=== PATIENT | male | born 2000 | race Caucasian/White ===

== ENCOUNTER 2021-12-08 13:33 | Observation (INO) | payer BC ==
--- NOTE | 2021-12-08 14:04 | ERPHSYRPT ---
- History of Present Illness Source: patient Patient Subjective Stated Complaint: pt here for foreign object in recutm for 3 hours now, Triage Nursing Assessment: pt alert, resp easy, skin w/d/p. face mask in place, abd soft, no rectal bleeding Physician History: 21 yo wm w FB in rectum x 3 hours. Pt denies any other complaints at this time. Timing/Duration: hour(s) (3 hours) Severity: mild Associated Symptoms: No nausea, No vomiting, No abdominal pain, No shortness of breath, No heartburn, No diaphoresis, No cough, No chills, No chest pain, No fever, No headaches, No loss of appetite, No malaise, No rash, No syncope, No seizure, No weakness Allergies/Adverse Reactions: No Known Drug Allergies Allergy (Unverified 12/08/21 13:46) Home Medications: No Reportable Medications [No Reported Medications] 12/08/21 [History] Hx Influenza Vaccination/Date Given: Yes Hx Pneumococcal Vaccination/Date Given: No Immunizations Up to Date: Yes Travel Risk - International Travel Have you traveled outside of the country in past 3 weeks: No - Coronavirus Screening Are you exhibiting any of the following symptoms?: No Close contact with a COVID-19 positive Pt in past 14-21 Days: No - Vaccine Status Have you recieved a Covid-19 vaccination: No - Review of Systems Constitutional: No Symptoms Eyes: No Symptoms Ears, Nose, & Throat: No Symptoms Respiratory: No Symptoms Cardiac: No Symptoms Abdominal/Gastrointestinal: No Symptoms Genitourinary Symptoms: No Symptoms Musculoskeletal: No Symptoms Skin: No Symptoms Neurological: No Symptoms Psychological: No Symptoms Endocrine: No Symptoms Hematologic/Lymphatic: No Symptoms Immunological/Allergic: No Symptoms - Past Medical History Pertinent Past Medical History: No - Past Surgical History Past Surgical History: No - Social History Smoking Status: Never smoker Exposure to second hand smoke: No Drug Use: none Patient Lives Alone: No Significant Family History: no pertinent family hx - Nursing Vital Signs Nursing Vital Signs: Initial Vital Signs Temperature 96.8 F 12/08/21 13:42 Pulse Rate 121 H 12/08/21 13:42 Respiratory Rate 18 12/08/21 13:42 Blood Pressure 128/79 12/08/21 13:42 O2 Sat by Pulse Oximetry 96 12/08/21 13:42 Pain Scale Pain Intensity 0 Tachy - Physical Exam General Appearance: no apparent distress Eye Exam: PERRL/EOMI, eyes nml inspection Ears, Nose, Throat Exam: normal ENT inspection, TMs normal, pharynx normal Neck Exam: normal inspection, non-tender, supple, full range of motion, No meningismus, No mass, No Brudzinski, No Kernig's Respiratory Exam: normal breath sounds, lungs clear, airway intact, No respiratory distress Cardiovascular Exam: tachycardia, capillary refill <2 sec Gastrointestinal/Abdomen Exam: soft, normal bowel sounds, No tenderness Rectal Exam: other (Unable to palpate FB) Back Exam: normal inspection, normal range of motion, No CVA tenderness, No vertebral tenderness Extremity Exam: normal inspection, normal range of motion, pelvis stable Neurologic Exam: alert, oriented x 3, cooperative, 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, normal mood/affect, nml cerebellar function, nml station & gait, sensation nml, No motor deficits, No sensory deficit Skin Exam: normal color, warm, dry Lymphatic Exam: No adenopathy SpO2 Interpretation: normal SpO2: 96 O2 Delivery: Room Air - Course Nursing assessment & vital signs reviewed: Yes Ordered Tests: Active Orders 24 hr Category Date Time Status NPO Diet 12/08/21 14:40 Completed Transfer Order Routine Transfer 12/08/21 Completed Medication Summary Generic Name Dose Route Start Last Admin Trade Name Freq PRN Reason Stop Dose Admin Acetaminophen 650 mg 12/08/21 22:28 12/08/21 22:29 Acetaminophen 325 Mg Tablet PO 01/07/22 22:27 650 mg Q4H PRN PRN Administration PAIN AND/OR FEVER Potassium Chloride/Dextrose/Sod Cl 1,000 mls @ 90 mls/hr 12/08/21 19:00 12/08/21 19:02 D5w/0.45ns W/ 20meq Kcl 1000 Ml IV 01/07/22 18:59 100 mls/hr .Q11H7M TY Administration Piperacillin Sod/Tazobactam 100 mls @ 200 mls/hr 12/08/21 22:00 12/08/21 22:22 Sod 3.375 gm/ Sodium Chloride IV 12/11/21 21:59 200 mls/hr Q8HT TY Administration Discontinued Medications Generic Name Dose Route Start Last Admin Trade Name Freq PRN Reason Stop Dose Admin Fentanyl Citrate Confirm 12/08/21 19:41 Fentanyl Citrate 100 Mcg/2 Ml* Vial Administered 12/08/21 19:42 Dose 100 mcg .ROUTE .STK-MED ONE Fentanyl Citrate Confirm 12/08/21 20:03 Fentanyl Citrate 100 Mcg/2 Ml* Vial Administered 12/08/21 20:04 Dose 100 mcg .ROUTE .STK-MED ONE Sodium Chloride 1,000 mls @ 100 mls/hr 12/08/21 14:45 12/08/21 14:57 Sodium Chloride 0.9% 1000 Ml IV 01/07/22 14:44 100 mls/hr .Q10H TY Administration Lactated Ringer's Confirm 12/08/21 19:23 Lactated Ringers Administered 12/08/21 19:24 Dose 1,000 mls @ ud IV .STK-MED ONE Lactated Ringer's 1,000 mls @ 100 mls/hr 12/08/21 19:30 12/08/21 19:35 Lactated Ringers IV 01/07/22 19:29 100 mls/hr .Q10H TY Administration Sodium Chloride Confirm 12/08/21 22:09 Sodium Chloride 100ml Mini-Bag Plus Administered 12/08/21 22:10 Dose 100 mls @ ud IV .STK-MED ONE Midazolam HCl Confirm 12/08/21 19:41 Midazolam Hcl 2 Mg/2 Ml Vial Administered 12/08/21 19:42 Dose 2 mg .ROUTE .STK-MED ONE Piperacillin Sod/Tazobactam Sod Confirm 12/08/21 22:09 Piperacillin/Tazobactam Sodium 3.375 Gm Vial Administered 12/08/21 22:10 Dose 3.375 gm IV .STK-MED ONE Propofol Confirm 12/08/21 19:40 Propofol 10 Mg/Ml 20ml Vial Administered 12/08/21 19:41 Dose 200 mg IV .STK-MED ONE Propofol Confirm 12/08/21 19:58 Propofol 10 Mg/Ml 20ml Vial Administered 12/08/21 19:59 Dose 200 mg IV .STK-MED ONE - Progress Progress Note: 12/08/21 14:35 Unable to palpate FB x2 Pt stated that he thought FB was approaching sphincter, so 3rd attempt w palpation of tip of FB but unable to remove FB digitally or w hemostats. Small amount of bleeding so attempt abated. Dr. Wade called and will take to surgery at 19:30. Observation [address] Dr. Fiore. 12/08/21 23:15 Pt refused pain meds during ER stay Counseled pt/family regarding: diagnosis - Departure Departure Disposition: Observation Clinical Impression: Rectal foreign body Condition: Stable Critical Care Time: No
[2021-12-08] MEDS ORDERED: Sodium Chloride 0.9% 1000 ML 1,000 ML IV SCH (14:45)
[2021-12-08 15:33] LABS: INFLUENZA A NEGATIVE (NEGATIVE); INFLUENZA B NEGATIVE (NEGATIVE); RESPIRATORY SYNCTIAL VIRUS NEGATIVE (Negative); SARS-CoV-2 Xpert Express NEGATIVE (NEGATIVE)
[2021-12-08] MEDS: D5W/0.45NS W/ 20mEq KCl 1000 ML 1,000 ML IV SCH (19:02)
--- NOTE | 2021-12-08 19:03 | PCM.HP ---
History of Present Illness - Chief Complaint Chief Complaint: Rectal Foreign Body History of Present Illness: is a 21 year old male who presentd to ER with C/O a sex toy that has a battery in it slipped up too high to retrieve from his rectum. He does not have any medical problems that he knows of and is not taking any medications. He has passed some stool and some blood after ER doctor attempted to remove the object. He has not had anyfood for 24hours,is NPO since admission. Pain LLQ and perirectal is 5/10,episodic pain. - Review of Systems Constitutional: No Symptoms Eyes: No Symptoms Ears, Nose, & Throat: No Symptoms Respiratory: No Symptoms, Other (nonsmoker) Cardiac: No Symptoms Abdominal/Gastrointestinal: Abdominal Pain (no N/V/D-see HPI) Genitourinary Symptoms: No Symptoms Musculoskeletal: No Symptoms Skin: No Symptoms Neurological: No Symptoms Psychological: No Symptoms Endocrine: No Symptoms Hematologic/Lymphatic: No Symptoms Medications & Allergies Home Medications: Home Medication List No Reportable Medications [No Reported Medications] 12/08/21 [History Confirmed 12/08/21] Allergies/Adverse Reactions: Allergies Allergy/AdvReac Type Severity Reaction Status Date / Time No Known Drug Allergies Allergy Unverified 12/08/21 13:46 - Past Medical History Past Medical History: Yes Neurological History: No Pertinent History ENT History: No Pertinent History Cardiac History: No Pertinent History Respiratory History: Asthma Endocrine Medical History: No Pertinent History Musculoskelatal History: No Pertinent History GI Medical History: No Pertinent History History: No Pertinent History Pyscho-Social History: No Pertinent History Male Reproductive Disorders: No Pertinent History - Past Surgical History Past Surgical History: No Neuro Surgical History: No Pertinent History Cardiac History: No Pertinent History Respiratory Surgery: No Pertinent History GI Surgical History: No Pertinent History Genitourinary Surgical Hx: No Pertinent History Musculskeletal Surgical Hx: No Pertinent History Male Surgical History: No Pertinent History - Social History Smoking Status: Never smoker Exposure to second hand smoke: No Alcohol: Rarely Drug Use: none Significant Family History: no pertinent family hx - Physical Exam Vital Signs: Vital Signs - 24 hr Temp Pulse Resp BP BP Pulse Ox 12/08/21 16:52 99.5 F 122 H 18 137/72 98 12/08/21 14:41 96 12/08/21 13:42 96.8 F 121 H 18 128/79 96 General Appearance: no apparent distress Neurologic Exam: alert, oriented x 3, cooperative, normal mood/affect Eye Exam: eyes nml inspection Ears, Nose, Throat Exam: normal ENT inspection Neck Exam: normal inspection Respiratory Exam: normal breath sounds, lungs clear Cardiovascular Exam: tachycardia (regular) Gastrointestinal/Abdomen Exam: soft, normal bowel sounds, tenderness (LLQ,no guarding) Rectal Exam: deferred (done in ER) Back Exam: normal inspection Extremity Exam: normal inspection Skin Exam: normal color, warm, dry Results - Labs Lab/Micro Results: Lab Results-Last 24 Hours 12/08/21 Range/Units Unknown Influenza Type A Ag NEGATIVE (NEGATIVE) Influenza Type B Ag NEGATIVE (NEGATIVE) RSV (PCR) NEGATIVE (Negative) SARS-CoV-2 (PCR) NEGATIVE (NEGATIVE) Assessment/Plan (1) Rectal foreign body Current Visit: Yes Status: Acute Assessment & Plan: General surgery will evaluate and remove object today,in route. Code(s): T18.5XXA - FOREIGN BODY IN ANUS AND RECTUM, INITIAL ENCOUNTER (2) History of asthma Current Visit: Yes Status: Resolved Assessment & Plan: not active ,nonsmoker Code(s): Z87.09 - PERSONAL HISTORY OF OTHER DISEASES OF THE RESPIRATORY SYSTEM
[2021-12-08] MEDS ORDERED: Lactated Ringers 1,000 ML IV ONE (19:23)
[2021-12-08] MEDS ORDERED: Lactated Ringers 1,000 ML IV SCH (19:30)
[2021-12-08] MEDS ORDERED: DIPRIVAN 200 MG/20 ML IV ONE ×2 (19:40→19:58)
[2021-12-08 19:41] LABS: Absolute Neutrophil Ct (ANC) 12.34 (1.4-6.9); Basophil (Absolute #) 0.03 (0-0.4); Eosinophil (Absolute #) 0 (0-0.5); Hematocrit 49.8 % (42-50); Hemoglobin 17.1 gm/dl (12.5-18.0); Lymphocytes % 13.6 % (24.0-44.0); Mean Cell Volume 85.9 fl (78-100); Mean Corpuscular Hemoglobin 29.5 pg (26-32); Mean Corpuscular Hgb Concent. 34.3 g/dl (32-36); Mean Platelet Volume 9.9 fl (7.5-11.0); Monocyte (Absolute #) 0.96 (0.0-1.3); Monocytes % 6.2 % (0.0-12.0); Platelet Count 253 K/mm3 (150-450); Red Cell Distribution Width 13.3 % (11.5-14.0); White Blood Count 15.4 K/mm3 (4.0-10.5)
[2021-12-08] MEDS ORDERED: SUBLIMAZE 100 MCG/2 ML ONE ×2 (19:41→20:03)
[2021-12-08] MEDS ORDERED: Versed 2 MG/2 ML Injection ONE (19:41)
[2021-12-08 20:09] LABS: ALBUMIN 4.4 g/dL (3.5-5.0); ALKALINE PHOSPHATASE 91 U/L (38-126); ANION GAP 18.1 MEQ/L (5-15); BLOOD UREA NITROGEN 15 mg/dL (9-20); CHLORIDE 105 mmol/L (98-107); Calcium 9.2 mg/dL (8.4-10.2); Carbon Dioxide 21 mmol/L (22-30); Creatinine 1 0.91 mg/dL (0.66-1.25); EST GLOMERULAR FILTRATION RATE > 60.0 ML/MIN; Glucose 98 mg/dL (74-106); Potassium 4.3 mmol/L (3.5-5.1); SGOT/AST 44 U/L (17-59); SGPT/ALT 69 U/L (0-50); SODIUM 139 mmol/L (137-145); Total Protein 7.5 g/dL (6.3-8.2)
[2021-12-08] MEDS ORDERED: Sodium Chloride 100ML MINI-BAG PLUS 100 ML IV ONE (22:09)
[2021-12-08] MEDS ORDERED: PIPERACILLIN/TAZOBACTAM IV ONE (22:09)
[2021-12-08] MEDS: PIPERACILLIN/TAZOBACTAM 3.375 GM in Sodium Chloride 100ML MINI-BAG PLUS 100 ML IV SCH (22:22)
[2021-12-08] MEDS ORDERED: TYLENOL 325 MG PO PRN (22:28)
[2021-12-09] MEDS ORDERED: PIPERACILLIN/TAZOBACTAM IV ONE (04:06)
[2021-12-09] MEDS ORDERED: Sodium Chloride 100ML MINI-BAG PLUS 100 ML IV ONE (04:06)
[2021-12-09 05:25] LABS: Absolute Neutrophil Ct (ANC) 7.44 (1.4-6.9); Basophil (Absolute #) 0.04 (0-0.4); Eosinophil % 0.6 % (0.00-5.0); Eosinophil (Absolute #) 0.07 (0-0.5); Hematocrit 47.6 % (42-50); Hemoglobin 16.2 gm/dl (12.5-18.0); Lymphocyte (Absolute #) 3.22 (1.0-4.6); Lymphocytes % 26.9 % (24.0-44.0); Mean Cell Volume 87.5 fl (78-100); Mean Corpuscular Hemoglobin 29.8 pg (26-32); Monocyte (Absolute #) 1.22 (0.0-1.3); Monocytes % 10.2 % (0.0-12.0); Platelet Count 243 K/mm3 (150-450); Red Blood Count 5.44 M/mm3 (4.1-5.6); Red Cell Distribution Width 13.4 % (11.5-14.0)
[2021-12-09] MEDS: PIPERACILLIN/TAZOBACTAM 3.375 GM in Sodium Chloride 100ML MINI-BAG PLUS 100 ML IV SCH ×2 (06:10→13:49)
[2021-12-09] MEDS: D5W/0.45NS W/ 20mEq KCl 1000 ML 1,000 ML IV SCH (06:13)
[2021-12-09 07:40] VITALS: O2SAT 96
--- NOTE | 2021-12-09 12:29 | PCM.DCORD ---
- Discharge Disposition: Home, Self-Care Condition: Stable Prescriptions: No Action No Reportable Medications [No Reported Medications] Additional Instructions: Patient follows with a Family Practice PCP,should call for appt when her office is open for a Hospital follow up. Follow up with: DOCTOR,NO FAMILY [Primary Care Provider] -
[2021-12-09 12:38] VITALS: BP 125/79; PULSE 103
--- NOTE | 2021-12-11 11:23 | OP ---
SURGERY DATE/TIME: 12/08/20212036 PREOPERATIVE DIAGNOSIS: Foreign body rectum. POSTOPERATIVE DIAGNOSIS: Foreign body rectum. PROCEDURE: Surgical removal of foreign body rectum with exam under anesthesia. Bimanual instrumental extraction, partial colonoscopy to 50 cm with use of proximal balloon withdrawal. SURGEON: Ramin Wade M.D. ANESTHESIA: General. COMPLICATIONS: None. CONDITION: Stable. INDICATION: Patient with foreign body that could not be removed in the emergency room. DESCRIPTION OF PROCEDURE: Taken to surgery. General anesthetic. Routine prep and drape. It could felt. It could be grabbed very lightly with fingertip but certainly could not be grasped. The sponge tip applied around to. It was a little pliable. It squeezed down just a hair. Colonoscope was placed up the side. The rectum was voluminous. The distal sigmoid was voluminous. A balloon was placed out behind the object in the more proximal colon and pulled down and this basically disimpacted the object higher up and it was grabbed with a sponge stick and it was able to be extracted intact. It did not look like there were any major issues. He is being kept overnight.
== END 2021-12-09 14:25 | disposition home or self-care (01) ==
LOC: ED 13:33 → MED SURG 16:42
PROVIDERS: ADMIT Family Medicine; ATTEND Family Medicine
DX: T18.5XXA Foreign body in anus and rectum, initial encounter (principal); Z87.09 Personal history of other diseases of the respiratory system
CPT/HCPCS: 0241U; 36000; 36415; 45379; 80053; 85025; 99284; G0378; 99140; C1726; J2250; J2704; J3010; A9270-GY